=== PATIENT | male | born 1995 | race African-American/Black ===

== ENCOUNTER 2016-11-18 21:08 | Emergency (ER) | payer MEDICAID ==
[~2016-11-18] VITALS: Ht 175.3 cm; Wt 66.0 kg
[2016-11-18 23:00] VITALS: BP 143/57
[2016-11-18] MEDS ORDERED: IBUPROFEN 600MG TABLET PO ONE (23:00)
== END 2016-11-18 23:51 | disposition home or self-care (01) ==
LOC: ER 22:00
DX: S90.31XA Contusion of right foot, initial encounter (principal); W22.8XXA Striking against or struck by other objects, initial encounter; Y93.67 Activity, basketball; Y92.39 Other specified sports and athletic area as the place of occurrence of the external cause
CPT/HCPCS: 73650; 99284

== ENCOUNTER 2020-11-10 00:22 | Emergency (ER) | payer MEDICAID ==
[~2020-11-10] VITALS: Ht 170.2 cm; Wt 68.0 kg
[2020-11-10] MEDS ORDERED: BACITRACIN ZINC OINT UDPKT TOP ONE (01:00)
[2020-11-10] MEDS ORDERED: TETANUS, DIPHTHERIA, PERTUSSIS VAC/PF 0.5ML (>7YR OLD) IM ONE (01:00)
[2020-11-10] MEDS ORDERED: ACETAMINOPHEN 325MG TABLET PO ONE (01:00)
[2020-11-10] MEDS ORDERED: IBUPROFEN 400MG TABLET PO ONE (01:00)
[2020-11-10] MEDS ORDERED: LIDOCAINE HCL/EPINEPHRINE 1%-EPI 1:100,000 10 ML VIAL IJ ONE (01:00)
[2020-11-10 01:33] VITALS: BP 132/52
== END 2020-11-10 03:43 | disposition home or self-care (01) ==
LOC: ER 00:22
DX: S61.011A Laceration without foreign body of right thumb without damage to nail, initial encounter (principal); W22.8XXA Striking against or struck by other objects, initial encounter; Y93.89 Activity, other specified; Y92.89 Other specified places as the place of occurrence of the external cause; Z23 Encounter for immunization
CPT/HCPCS: 12001; 73130; 90471; 90715; 99283; A4217; J3490; Z7610

== ENCOUNTER 2020-11-11 12:27 | Emergency (ER) | payer MEDICAID ==
[~2020-11-11] VITALS: Ht 170.2 cm; Wt 68.0 kg
[2020-11-11] MEDS ORDERED: BACITRACIN ZINC OINT UDPKT TOP ONE (13:00)
[2020-11-11 13:14] VITALS: BP 129/84
== END 2020-11-11 13:25 | disposition home or self-care (01) ==
LOC: ER 12:27
DX: S61.219D Laceration without foreign body of unspecified finger without damage to nail, subsequent encounter (principal); Z48.00 Encounter for change or removal of nonsurgical wound dressing; X58.XXXD Exposure to other specified factors, subsequent encounter
CPT/HCPCS: 99281

== ENCOUNTER 2020-11-19 12:14 | Emergency (ER) | payer MEDICAID ==
[~2020-11-19] VITALS: Ht 170.2 cm; Wt 68.0 kg
[2020-11-19] MEDS ORDERED: BACITRACIN ZINC OINT UDPKT TOP ONE (12:45)
[2020-11-19 13:30] VITALS: BP 132/63
== END 2020-11-19 13:38 | disposition home or self-care (01) ==
LOC: ER 12:14
DX: Z48.02 Encounter for removal of sutures (principal); R03.0 Elevated blood-pressure reading, without diagnosis of hypertension
CPT/HCPCS: 99283